=== PATIENT | female | born 2000 | race Caucasian/White ===

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

== ENCOUNTER 2022-06-13 17:04 | Emergency (ER) | payer OTHER, SELFPAY ==
[2022-06-13 17:06] VITALS: BP 133/84; PULSE 115; RESP 18; TEMP 36.4; O2SAT 95; BMI 25.8
--- NOTE | 2022-06-13 17:30 | CT_ITS ---
EXAM: CT NECK WITH INTRAVENOUS CONTRAST CLINICAL INDICATION: Question parapharyngeal abscess TECHNIQUE: Helically acquired images were obtained of the neck with intravenous contrast. This CT exam was performed using one or more of the following dose reduction techniques: automated exposure control, adjustment of the mA and/or kV according to patient size, and/or use of iterative reconstruction technique. This report was created using [employer] report generation technology. CONTRAST: IV 75mL Isovue-370 RADIATION DOSE: CTDIvol = 15.23 mGy, DLP = 452.93 mGy-cm COMPARISON: None. FINDINGS: NASOPHARYNX: Unremarkable. SUPRAHYOID NECK: Serpiginous enhancement of the tonsils. The tonsils are enlarged suggesting acute tonsillitis. No abscess. INFRAHYOID NECK: Unremarkable. The larynx, hypopharynx and supraglottis are unremarkable. SUBMANDIBULAR/PAROTID GLANDS: Unremarkable. Glands are normal in size. THYROID: Unremarkable. No enlarged or calcified nodules. BONES/JOINTS: No acute fracture. SOFT TISSUES: Unremarkable. VASCULATURE: No acute findings. LYMPH NODES: Unremarkable. No lymphadenopathy. LUNG APICES: Unremarkable as visualized. CT/Soft Tissue Neck WITH Contrast IMPRESSION: Serpiginous enhancement of the tonsils. The tonsils are enlarged suggesting acute tonsillitis. No abscess. Electronically Signed: Alejandro Hsu MD at 18:51 EST Reading Location ID and State: [facility] / [place] , Service support ,
--- NOTE | 2022-06-13 17:32 | EX.ED.DYSGE1 ---
HPI History of Present Illness Chief Complaint: Sore Throat Informant: patient and parent Narrative Narrative: Patient presents with worsening sore throat. This started about 2 and half days ago. Its a little bit more on the left than the right. She has had subjective fevers but has not checked temperature. She has no cough or nasal congestion with this. She does have soreness in the anterior neck. No dental pain. She was seen in urgent care. They did a rapid strep that was reported as negative. She is not treated with any meds at this point. She came in because it hurts to swallow and she is not eating and drinking a lot. She states she has just a tiny bit of nausea but her biggest problem is it hurts. No change in voice. No pain down into the chest. Nothing really makes this better but they do not really have anything to try. She has sore throat as in HPI. No nasal congestion. No cough trouble breathing. No chest pain. No abdominal pain. No diarrhea. Mild nausea only. No rashes. No extremity or joint pain. No headaches. Past medical history: No chronic conditions Medications control No known drug allergies Surgeries wisdom teeth Lives with family non-smoker [facility] Home Medications drospirenone 3 mg-ethinyl estradiol 0.02 mg tablet 1 tab PO 10/02/20 [History Last Taken Unknown] spironolactone 50 mg tablet 50 mg PO 10/02/20 [History Last Taken Unknown] ondansetron 4 mg disintegrating tablet 4 mg PO Q8H PRN nausea and vomiting #10 tabs 06/13/22 [Rx Last Taken Unknown] Allergy/AdvReac Type Severity Reaction Status Date / Time No Known Allergies Allergy Unverified 06/13/22 17:08 Surgical History Hx of wisdom tooth extraction Social History household members: family Smoking Status: Never smoker alcohol intake: never substance use type: does not use EXAM Physical Exam Narrative Exam Narrative: Patient awake alert no acute distress. She can speak. Her voice is just slightly muffled. She handles secretions well. No external swelling seen. She does have tonsillar areas that are actually quite red and irritated. There does appear to be a small amount exudate more on the left than the right. Uvula does appear to be midline but the swelling on the left still does look a little bit more. No dental pain. No tongue swelling. There is some mild lymphadenopathy anterior cervical area. No stridor. Lungs are clear. Heart is tachycardic but regular. Referral pulses are equal. I see no rashes or sandpaper rash. Abdomen is soft and completely nontender. There is no CVA tenderness. Patient awake alert and appropriate. Not confused or lethargic. Const Vital Signs: 06/13/22 17:06 06/13/22 17:12 Temperature 97.5 F L Temperature Source Temporal Pulse Rate 115 H Respiratory Rate 18 Respiratory Effort Normal Respiratory Pattern Normal Blood Pressure 133/84 H Blood Pressure Mean 100 Pulse Ox 95 Oxygen Delivery Method Room Air MDM MDM MDM Narrative Medical decision making narrative: Patient's rapid strep test was done and is negative. Her CBC shows elevated white count but her hemoglobin and platelets are normal. White count can certainly go along with infection but could also be mild dehydration and demargination. Electrolytes are normal and her not hinting of dehydration though. My independent interpretation of her CT of the neck showed images from toward base of the brain and upper chest. Her tonsils look enlarged but I do not see sign of an abscess. I see no air. Official reading shows enlarged tonsils without abscess also. Patient has gotten Decadron here. With 2 negative rapid strep test I do not think she needs antibiotics. I will get her some meds for nausea as that does seem to help her. We have hydrated her with IV fluids that she had not been eating and drinking I think clinically she had some degree of dehydration. I think patient is safe for discharge and follow-up. Lab Data Attestation: I reviewed the patient's lab results. Labs: Laboratory Results - last 24 hr 06/13/22 06/13/22 17:41 17:41 WBC 15.9 H RBC 4.37 Hgb 13.4 Hct 38.4 MCV 87.9 MCH 30.7 MCHC 34.9 RDW Std Deviation 38.5 RDW Coeff of [place] 12.0 Plt Count 224 MPV 9.5 Immature Gran % (Auto) 0.400 Neut % (Auto) 85.9 H Lymph % (Auto) 7.1 L [place] % (Auto) 6.4 Eos % (Auto) 0.1 Baso % (Auto) 0.1 Absolute Neuts (auto) 13.6 H Absolute Lymphs (auto) 1.12 Nucleated RBC % 0 Sodium 137 Potassium 3.7 Chloride 102 Carbon Dioxide 28.0 Anion Gap 7 BUN 7 Creatinine 0.79 Estim Creat Clear Calc 105.45 Est GFR (MDRD) Af Amer 117 Est GFR (MDRD) Non-Af 97 BUN/Creatinine Ratio 8.8 L Glucose 101 Calcium 8.9 Radiography Diagnostic Testing: Clinical Impression(s) from Imaging Studies Soft Tissue Neck CT 06/13/22 17:30 IMPRESSION: Serpiginous enhancement of the tonsils. The tonsils are enlarged suggesting acute tonsillitis. No abscess. Electronically Signed: Alejandro Hsu MD at 18:51 EST Reading Location ID and State: [facility] / [place] , Service support , Discharge Plan Triage Chief Complaint: Sore Throat ED Provider: Krishna Stanley Dx/Rx/DC Orders Clinical Impression: Pharyngitis, Dehydration, mild Instructions: ED Pharyngitis, Viral Prescriptions: New ondansetron 4 mg tablet,disintegrating 4 mg PO Q8H PRN (Reason: nausea and vomiting) Qty: 10 0RF No Action drospirenone-ethinyl estradiol 3-0.02 mg tablet 1 tab PO spironolactone 50 mg tablet 50 mg PO Label Comments: TAKE 1 TABLET BY MOUTH TWICE A DAY Primary Care Provider: Hunter Lazcano Referrals: Hunter Lazcano DO [Primary Care Provider] - 3-5 Days Disposition Disposition: Home, Self Care
[2022-06-13] MEDS: 0.9% Normal Saline 1,000 ML 1000 ML IV (17:48)
[2022-06-13] MEDS: Ondansetron 4 MG/2 ML Vial IV (17:48)
[2022-06-13] MEDS: dexAMETHasone 10 MG/ML Vial IV (17:49)
[2022-06-13 17:57] LABS: Absolute Lymphocyte Count 1.12 X10^3/uL (0.83-4.51); Absolute Neutrophil Count 13.6 X10^3/uL (2.0-7.7); Basophil# 0.02 X10^3/uL; Basophil% 0.1 % (0-1); Eosinophil# 0.02 X10^3/uL; Eosinophils% 0.1 % (0-5); Hematocrit 38.4 % (37-47); Hemoglobin 13.4 g/dL (12.0-15.0); Lymphocyte # 1.12 X10^3/ul (0.83-4.51); Lymphocyte % 7.1 % (19-41); Mean Corp Hgb Conc 34.9 g/dL (32-36); Mean Corpuscular Hgb 30.7 pg (27.0-32.0); Mean Corpuscular Volume 87.9 fL (81-99); Mean Platelet Vol. 9.5 fl (6.2-12.0); Monocyte# 1.01 X10^3/uL; Monocyte% 6.4 % (0-10); NRBC Flagged by Analyzer 0 % (0-5); Neutrophil # 13.64 X10^3/uL (2.7-7.7); Neutrophil % 85.9 % (47-70); Platelet Count 224 K/mm3 (150-450); RBC Distribution Width SD 38.5 fl (35.1-43.9); Red Blood Count 4.37 M/mm3 (4.2-5.4); White Blood Count 15.9 K/mm3 (4.4-11.0)
[2022-06-13 18:12] LABS: Anion Gap 7 (5-15); BUN 7 mg/dL (7-18); BUN/Creat Ratio 8.8 RATIO (10-20); Calcium,Total 8.9 mg/dL (8.5-10.1); Chloride 102 mmol/L (98-107); Creatinine, Serum 0.79 mg/dL (0.55-1.02); EST Glomerular Filtration Rate 97 mL/min (>60); Est Glom Filt Rate - Afr Amer 117 mL/min (>60); Estimated Creatinine Clearance 105.45 ml/min; Glucose 101 mg/dL (74-106); Potassium 3.7 mmol/L (3.5-5.1); Sodium Level 137 mmol/L (136-145)
== END 2022-06-13 19:29 | disposition home or self-care (01) ==
PROVIDERS: Emergency Provider Emergency Medicine; PCP Student in an Organized Health Care Education/Training Program; Visit Provider Emergency Medicine
DX: E86.0 Dehydration (principal); R11.0 Nausea; J02.9 Acute pharyngitis, unspecified
CPT/HCPCS: 70491; 80048; 85025; 87880; 96361; 96374; 99283; J7030; Q9967; A4216; J2405